=== PATIENT | female | born 1995 | race Caucasian/White ===

== ENCOUNTER → 2018-05-07 | Day surgery (SDC) | payer OTHER ==
[~2018-05-07] VITALS: Ht 160 cm; Wt 54.9 kg
[~2018-05-07] MED LIST: LINZESS72 MCG PO
--- NOTE | 2018-05-07 09:03 | Operative Report ---
See Addendum Operative/Inv Procedure Report Surgery Date: 05/07/18 Name of Procedure: Tonsillectomy and adenoidectomy Pre-Operative Diagnosis: Chronic tonsillitis\ Tonsillar hypertrophy Post-Operative Diagnosis: Chronic tonsillitis Tonsillar hypertrophy Adenoid hypertrophy Estimated Blood Loss: scant Surgeon/[employer] Manager: Juliette Kwong MD Anesthesia: general endotracheal tube Specimens: 1. Right tonsil and adenoid; 2. Left tonsil Complications: None Condition: Stable on leaving the OR Operative Indication: Recurrent upper respiratory infections Recurrent tonsillitis Concretions forming within the tonsils with bad breath and bad taste Patient has been treated with recurrent courses of antibiotics with improvement but then recurrence Operative/Procedure Note Note: Patient was brought to the operating room. Placed on the operating table in supine position. First timeout was performed including patient's name, ID number and planned procedure. Then general orotracheal anesthesia was induced. Endotracheal tube was taped in the midline. Oral cavity was exposed with oral cavity retractor, endotracheal tube positioned in the midline over the tongue. Soft palate was palpated. There was no submucous cleft. Nasopharynx was visualized with a mirror. The nasopharynx was obstructed by adenoids. Two red rubber catheters were placed into the nose for elevation of soft palate and secured in place with Sri clamps. Nasopharynx was visualized with a mirror. Medium-sized adenoid curette was used to shave the adenoids. Additional tissue was removed from the choana with Marquez Huber forceps. Bleeding was controlled by application of pressure with tonsil sponges. Then cautery of the adenoidal bed was carried with the suction Bovie set on coag of 35. At the end of the adenoidectomy there was no further bleeding and nasopharynx was widely patent. A small tonsil sponge was placed into the nasopharynx for further hemostasis and attention was then given to the tonsillectomy. Tonsils were markedly endophytic, friable and with great deal of crypts and concretions. For this dissection pencil bovie with a blade was used set on cautery of 15 and cut 5. Right tonsil was grasped with curved Allis, incision was placed over the anterior superior pole of the mucosa only. Tonsil capsule was identified and dissection was carried from superior to inferior until the entire tonsil was removed. Next the left tonsil was grasped with curved Allis. Incision was placed with the Bovie over the anterior-superior pole through the mucosa only. Tonsillar capsule was identified and dissection carried from the superior to the inferior until the entire tonsil was removed. At the end of the procedure tonsillar fossa was inspected for bleeders. Additional cautery was carried to assure adequate hemostasis. During dissection both tonsils were scarred down onto the tonsillar fossa. Surgery was completed. Stomach was suctioned with an OG tube. The patient was reawakened, extubated and taken to the recovery room in good condition. There were no complications. Estimated blood loss was minimal. Findings: Tonsils 4+ with marked endophytic component, markedly scarred down onto the tonsillar fossa, great deal of crypts and concretions Adenoid hypertrophy with obstruction of the nasopharynx Discharge Disposition: PACU
== END ==
LOC: STS 01:22
DX: J35.03 Chronic tonsillitis and adenoiditis (principal); J39.8 Other specified diseases of upper respiratory tract; R19.6 Halitosis
CPT/HCPCS: 81025; J0131; J0690; J2250; J3490